=== PATIENT | female | born 1985 | race Caucasian/White ===

== ENCOUNTER 2017-01-08 08:11 | Emergency (ER) | payer OTHER ==
[~2017-01-08] VITALS: Ht 170.2 cm; Wt 77.3 kg
[2017-01-08 08:15] VITALS: BP 113/82; PULSE 94; RESP 16; O2SAT 100
--- NOTE | 2017-01-08 08:57 | ED.REPORT ---
HPI-General Illness Date of Service Jan 08, 2017 ED Provider: Jerald Jarrett MD Pt is a 31 year old female who presents to the ED c/o constant nausea onset 0600. She states that she had lip filler injections three days ago, and thinks she has had a bad reaction. She received nitroglycerin to put on her lips, and took it at 1700 yesterday and 0000 today. Additional symptoms include vomiting, difficulty sleeping, chills, diaphoresis, shaking, anxiety, abdominal cramping, and mild headache. She reports taking two advil at 0300. Nursing Notes Stated Complaint: VOMITING, SHAKING, NAUSEA, UNABLE TO SLEEP Chief Complaint: General Complaint Nursing Notes Reviewed: Yes ([employer], [employer] not reconciled) Allergies: Coded Allergies: metformin (Verified Allergy, Severe, CHEST PAIN, 01/08/17) General Time Seen by MD: 08:30 Chief Complaint Vomiting Hx Obtained From: Patient Arrived By: Walk-in Sudden in Onset?: Yes Onset Occurred: 1 - 4 hours ago Symptom Duration: Constant Quality: Painful Severity: Current: Mild Severity: Maximum: Moderate Recent Healthcare: Recent doctor visit Similar Sx Previous: No Past Medical History Past Medical History Asthma as a child Lip filler injections Smoking History Current Every Day Smoker Social History Alcohol Use: Denies alcohol use Drug Use: Denies drug use Occupation lives with boyfriend and children, no work at this time Ambulatory Status Independent Review of Systems Difficulty sleeping Full Review of Systems Constitutional: Reports: Chills GI: Reports: Abdominal pain (cramping), Nausea, Vomiting Skin: Reports Diaphoresis Neurologic: Reports: Headache (mild), Shaking Psychiatric: Reports: Anxiety Complete sys rev & neg: except as marked. Physical Exam Vital Signs Vital Signs Date Time Temp Pulse Resp B/P Pulse Ox O2 Delivery O2 Flow Rate FiO2 01/08/17 11:39 75 16 112/69 98 Room Air 01/08/17 10:22 36.5 89 14 116/78 98 Room Air 01/08/17 08:15 36.4 94 16 113/82 100 Room Air Initial VS: Reviewed, Vital signs normal Head / Eyes: Atraumatic, Normocephalic Neck: Supple, Full range of motion Respiratory: No respiratory distress Abdomen / GI: Soft, Non-tender Extremities: Vascular intact, Neuro intact, No swelling, No tenderness Neurologic: Alert, Oriented, Nonfocal Psychiatric: Mood/affect normal, Behavior normal, Normal thought content General/Constitutional: Awake, Alert Behavior: Positive: Anxious, Tearful ENT: Airway patent Lower lip is dry, chapped, and swollen with mild ecchymosis No pallor inadequate profusion No overt pulsor, dermatitis, or herpes No signs of infection or complication Interpretation & Diagnostics Lab Results Interpretation Result Diagram: 01/08/17 0929 01/08/17 0929 Test 01/08/17 09:29 White Blood Count 6.2th/mm3 (3.8-10.1) Red Blood Count 4.54mil/mm3 (3.90-5.20) Hemoglobin 13.6g/dL (12.0-15.6) Hematocrit 39.4% (35.0-46.0) Mean Corpuscular Volume 86.8fL (81-100) Mean Corpuscular Hemoglobin 30.0pg (27.0-35.0) Mean Corpuscular Hemoglobin Concent 34.5% (32.0-37.0) Red Cell Distribution Width 12.2% (12.3-15.4) Platelet Count 234bil/L (150-400) Neutrophils (%) (Auto) 74.3% (40-74) Lymphocytes (%) (Auto) 16.5% (14-46) Monocytes (%) (Auto) 5.8% (4-12) Eosinophils (%) (Auto) 3.1% (0-5) Basophils (%) (Auto) 0.3% (0-3) Sodium Level 140mEq/L (134-144) Potassium Level 3.6mEq/L (3.5-5.2) Chloride Level 102mEq/L (97-108) Carbon Dioxide Level 21mmol/L (18-29) Blood Urea Nitrogen 12mg/dL (6-20) Creatinine 0.59mg/dL (0.57-1.00) Estimat Glomerular Filtration Rate 171mL/min (>59) Glucose Level 83mg/dL (60-99) Calcium Level 9.6mg/dL (8.5-10.1) Total Bilirubin 0.9mg/dL (0.0-1.2) Aspartate Amino Transf (AST/SGOT) 14U/L (0-50) Alanine Aminotransferase (ALT/SGPT) 7U/L (0-32) Alkaline Phosphatase 42U/L (25-150) Total Protein 7.5g/dL (6.4-8.4) Albumin 4.4g/dL (3.4-5.0) Lipase 14U/L (13-60) Lab Results Interpretation: CBC normal CMP normal Re-Eval/Medical Decision Med Decision/Clinical Course This is a pleasant 31-year-old female presents with complaints of feeling nauseated, tearful, anxious and lousy. Should several days ago underwent a injection of filler the lips, and she describes what sounds like opening some pallor at the site of vasoconstrictor and local anesthetic injection, so she was given topical nitrates to apply order to retain blood flow. She has been extremely anxious that her lip would become ischemic and "quote fall" off. As night she became so where she can sleep, she's developed some nausea and effort into the murmurs murmur. On evaluation she is extremely anxious, but has otherwise lip lower lip is swollen, slightly ecchymotic but any collars completely resolved. There is good visible perfusion throughout all parts of the lip, no signs of secondary infection. Lip is dry. She was artery on antivirals, but I don't appreciate herpetic lesions at this time. On simple reassurance the patient's symptoms started markedly improved. She complained fair amount of nausea and IV in place received a dose of antiemetics with resolution. Her symptoms mostly resolved with simple reassurance regarding that there are no findings to indicate ischemia the lip at this time. I think she can completely discontinue the topical lidocaine that she been administering , there is a chance that that may have contributed some of her symptoms today. There is no signs of secondary infection, anaphylaxis. Observed and did well. She is being discharged in good condition. She'll follow up with her provider. Source of Hx: Old records Time of Eval: 10:37 Patient Status: Condition improved Re-Evaluation/Progress Note: Patient rechecked. Discussed plan for discharge. Patient understands and agrees with plan. F/U instructions and RTER warnings given. All questions addressed at this time. Differential Diagnosis: Negative: Abdominal pain, Acute coronary syndrome, Allergies, Drug dependence, G-tube repair/replacement, Neutropenia, Pharyngitis , acute, Pneumonia, Seizure disorder Counseled Regarding: Diagnosis, Lab results, Need for follow-up, When/why to return to ED Discharge & Departure Primary Impression: Nausea Additional Impressions: Adverse drug effect Encounter type: initial encounter Qualified Code: T88.7XXA - Unspecified adverse effect of drug or medicament, initial encounter Anxiety about health Disposition: Home Discharge Condition All VS Reviewed: Yes Condition: Stable Additional Instructions: 1. The lip is well perfused (the blood flow has been restored) 2. You can stop taking the nitroglycerin. 3. Your blood tests were normal. 4. Activities and diet as tolerated. 5. Return if new or worsening symptoms Referrals: Laura Dickey MD Attestation Portions of this note were transcribed by Monica Manning. I, Dr. Jarrett, personally performed the history, physical exam and medical decision-making; I reviewed and confirmed the accuracy of the information in the transcribed note. Signed by: Genesis Renee, 01/08/17. copies to: Laura Dickey MD, Matthew F MD Jan 08, 2017 08:57 Monica Manning Jan 08, 2017 08:59
[2017-01-08] MEDS ORDERED: Ondansetron 2 mg/mL 2 mL Inj IVPUSH ONE (09:05)
[2017-01-08 09:44] LABS: BASOPHILS % (AUTO) 0.3 % (0-3); EOSINOPHILS % (AUTO) 3.1 % (0-5); MONOCYTES % (AUTO) 5.8 % (4-12); Mean Corpuscular Volume 86.8 fL (81-100); NEUTROPHILS % (AUTO) 74.3 % (40-74); Platelet Count 234 bil/L (150-400)
[2017-01-08 10:22] VITALS: BP 116/78; PULSE 89; RESP 14; O2SAT 98
[2017-01-08 11:39] VITALS: BP 112/69; PULSE 75; RESP 16; O2SAT 98
== END 2017-01-08 11:40 | disposition home or self-care (01) ==
LOC: SED 08:11
DX: R11.0 Nausea (principal); T50.995A Adverse effect of other drugs, medicaments and biological substances, initial encounter; F41.9 Anxiety disorder, unspecified; F17.200 Nicotine dependence, unspecified, uncomplicated; Z88.8 Allergy status to other drugs, medicaments and biological substances
CPT/HCPCS: 36415; 80053; 83690; 85025; 96374; 96375; 99284; J1200; J2405